=== PATIENT | female | born 1960 | race African-American/Black ===

== ENCOUNTER 2023-06-28 16:30 | Emergency (ER) | payer OTHER, MEDICAID, SELFPAY ==
[2023-06-28] VITALS (7 sets, daily range): BP systolic 120–169; BP diastolic 83–91
[2023-06-28 17:09] LABS: % Basophils 0.8 % (0-2); % Eosinophils 1.5 % (0-6); % Immature Granulocytes 0.5 % (0-0.5); % Lymphocytes 27.9 % (20.5-51.1); % Monocytes 5.9 % (1.7-9.3); % Neutrophils 63.4 % (42.2-75.2); Absolute Basophils 0.1 10^3/uL (0-0.2); Absolute Eosinophils 0.1 10^3/uL (0-0.7); Absolute Lymphocytes 2.2 10^3/uL (1.2-3.4); Absolute Monocytes 0.5 10^3/uL (0.1-0.6); Absolute Neutrophils 5.1 10^3/uL (1.4-6.5); Hematocrit 36.7 % (37.0-47.0); Hemoglobin 12.4 g/dL (12.0-16.0); Mean Corp Hgb Conc. 33.8 g/dL (33.0-37.0); Mean Corpuscular Hgb 31.2 pg (27.0-31.0); Mean Corpuscular Volume 92.4 fL (81.0-99.0); Mean Platelet Volume 11.5 fL (7.4-10.4); Nucleated Red Blood Cells % 0 %; Platelet Count 183 10^3/uL (130-400); Red Blood Cell Count 3.97 10^6/uL (4.20-5.40); Red Cell Dist. Width 13.2 % (11.5-14.5)
--- NOTE | 2023-06-28 17:16 | ED.GENMED ---
History of Present Illness
<Estefania Santiago PA-C - Last Filed: 06/29/23 19:50>
General
Chief Complaint: Chest Pain
Source: patient
Exam Limitations: none
Time Seen by Provider: 06/28/23 16:59
Nursing documentation reviewed up to this point in time: agreed with
Travel History
Have you had any contact with someone who has COVID-19?: No
Do you have any symptoms of coronavirus? Fever > 100 degrees, chills, cough, shortness of breath, sore throat, loss of taste or smell, muscle aches, or headache?: No
History of Present Illness
History of Present Illness:
Patient is a 62 year old female with history of CAD s/p 2 cardiac stents, MS presenting to the emergency department via EMS following acute onset chest pain at approximately 4PM . Patient states that she was at a [employer] meeting standing
up when she had a sudden onset substernal chest pain with radiation up into her left jaw. Patient states that chest pain lasted for about 30 minutes and has now mainly resolved. She does endorse a pain up into her left neck. Patient denies any
associated shortness of breath, back pain, nausea, vomiting, dizziness, or diaphoresis. She reports 2 prior 'heart attack 'which all had very different presenting symptoms. Patient denies any recent exertional chest pain. Patient does report eating
a spicy meal for lunch today.
Patient sees Dr. Riojas as her primary dipping machine operator through [facility]. Patient sees him every 6 months with most recent visit this past February. They are planning to replace one of her cardiac stents within the next year.
Phy Exam
<Estefania Santiago PA-C - Last Filed: 06/29/23 19:50>
Physical Exam
Physical Exam:
Vitals: Patient's vital signs are stable. Afebrile.
General: Patient is well appearing, no acute distress
Skin: Warm and dry, no rashes or lesions
Head: Normocephalic, atraumatic
Eyes: Sclera nonicteric. EOMs intact. No nystagmus.
Throat: Protecting airway
Neck: Normal ROM, no cervical spine tenderness, no meningismus. No tenderness over carotids. Tenderness on left upper trapezius at medial aspect.
Cardiac: Regular rate and rhythm, systolic ejection murmur noted. No anterior chest wall to palpation
Pulm: Normal respiratory effort, no wheezes, rales, rhonchi heard on exam.
Abdomen: No abdominal tenderness.
Extremities: No evidence of cyanosis or edema. Good distal pulses.
Neuro: AAOx3. CN II-XII intact. No focal neurologic deficits.
Psychiatric: Normal affect.
Scores
<Estefania Santiago PA-C - Last Filed: 06/29/23 19:50>
Heart Score for Chest Pain Patients
STEMI patient?: No
History: Moderately Suspicious
ECG: Normal
Age: >45 - <65 years
Risk Factors: >/= 3 Risk Factors or History of CAD
Troponin: </= Normal Limit
Heart Score for Chest Pain Patients: 4
Heart Score Risk: 20.3% MACE over next 6 weeks
<Deep Cordova MD - Last Filed: 06/29/23 02:43>
Heart Score for Chest Pain Patients
Heart Score for Chest Pain Patients: 4
Heart Score Risk: 20.3% MACE over next 6 weeks
Course
<Estefania Santiago PA-C - Last Filed: 06/29/23 19:50>
Orders/Labs/Results
Orders:
Orders
06/28/23 16:32
Electrocardiogram (*1) Urgent
Reason for Study: Chest Pain
EKG- Treatment ONCE
06/28/23 16:54
Complete Blood Count/With Diff Urgent
Comprehensive Metabolic Panel Urgent
Troponin I Urgent
06/28/23 17:09
CR Chest - 2 Views Urgent
Comment:
Reason For Exam: cp
06/28/23 18:02
EKG- Treatment ONCE
06/28/23 18:37
Acetaminophen [Tylenol] 650 mg PO NOW STA
06/28/23 19:55
Electrocardiogram (*1) Urgent
Reason for Study: Chest Pain
06/28/23 19:57
Troponin I Urgent
06/28/23 20:06
Electrocardiogram (*1) Urgent
Reason for Study: Chest Pain
EKG- Treatment ONCE
Abnormal Lab Results
06/28/23
16:54
RBC 3.97 L 10^6/uL
(4.20-5.40)
Hct 36.7 L %
(37.0-47.0)
MCH 31.2 H pg
(27.0-31.0)
MPV 11.5 H fL
(7.4-10.4)
Chloride 108 H mmol/L
(98-107)
BUN 22 H mg/dl
(7-17)
06/28/23 16:54
06/28/23 16:54
Vital Signs
Initial and Last Documented VS:
Initial Vital Signs
Temp Pulse Resp BP Pulse Ox
97.9 F 68 18 120/90 100
06/28/23 16:38 06/28/23 16:38 06/28/23 16:38 06/28/23 16:38 06/28/23 16:38
Last Documented Vital Signs
Temp Pulse Resp BP Pulse Ox
97.9 F 66 10 142/86 97
06/28/23 16:38 06/28/23 21:00 06/28/23 21:00 06/28/23 21:00 06/28/23 21:00
<Deep Cordova MD - Last Filed: 06/29/23 02:43>
Orders/Labs/Results
Orders:
Orders
06/28/23 16:32
Electrocardiogram (*1) Urgent
Reason for Study: Chest Pain
EKG- Treatment ONCE
06/28/23 16:54
Complete Blood Count/With Diff Urgent
Comprehensive Metabolic Panel Urgent
Troponin I Urgent
06/28/23 17:09
CR Chest - 2 Views Urgent
Comment:
Reason For Exam: cp
06/28/23 18:02
EKG- Treatment ONCE
06/28/23 18:37
Acetaminophen [Tylenol] 650 mg PO NOW STA
06/28/23 19:55
Electrocardiogram (*1) Urgent
Reason for Study: Chest Pain
06/28/23 19:57
Troponin I Urgent
06/28/23 20:06
Electrocardiogram (*1) Urgent
Reason for Study: Chest Pain
EKG- Treatment ONCE
Abnormal Lab Results
06/28/23
16:54
RBC 3.97 L 10^6/uL
(4.20-5.40)
Hct 36.7 L %
(37.0-47.0)
MCH 31.2 H pg
(27.0-31.0)
MPV 11.5 H fL
(7.4-10.4)
Chloride 108 H mmol/L
(98-107)
BUN 22 H mg/dl
(7-17)
06/28/23 16:54
06/28/23 16:54
Vital Signs
Initial and Last Documented VS:
Initial Vital Signs
Temp Pulse Resp BP Pulse Ox
97.9 F 68 18 120/90 100
06/28/23 16:38 06/28/23 16:38 06/28/23 16:38 06/28/23 16:38 06/28/23 16:38
Last Documented Vital Signs
Temp Pulse Resp BP Pulse Ox
97.9 F 66 10 142/86 97
06/28/23 16:38 06/28/23 21:00 06/28/23 21:00 06/28/23 21:00 06/28/23 21:00
<Estefania Santiago PA-C - Last Filed: 06/29/23 19:50>
MDM/Problems Addressed
Differential Diagnosis Includes:
Not limited to: muscle strain, GERD, ACS, pericarditis, myocarditis, pneumothorax, doubt PE or dissection
MDM/Problems Addressed:
62 year old female with history as documented presenting via EMS following acute onset chest pain earlier today. She did receive nitro en route. Chest pain has been resolved at this point but does report pain in her left side of her neck. There
was no associated shortness of breath, nausea, vomiting, diaphoresis, dizziness. Patient with significant cardiac history and 2 stent placements. Vital signs are stable. Exam as above. Heart rate regular. Lungs clear bilaterally. She does have
some tenderness palpation of her left upper trapezius which appears to be muscular in origin. No carotid tenderness. Will check labs, troponin, chest x-ray, EKG. will monitor very closely reassess. Tylenol for pain.
EKG obtained in triage shows normal sinus rhythm with no signs of ischemia.
Labs noted. No clinically significant abnormalities. Initial troponin is negative. Will repeat troponin in 3 hours to ensure not trending upwards.
Into reassess patient at bedside. She remains without any recurrence of chest pain. Vital signs remained stable.
Chest x-ray shows no signs of acute disease.
Repeat troponin negative. Repeat EKG shows no ischemic changes. Patient remains without chest pain. Given patient's significant cardiac history�I did recommended observation overnight with cardiology consult. Patient adamant that she would like
to go home. Shared decision making with patient. Given vitals are stable and she remains asymptomatic without any ischemic changes on EKG or elevation in troponin-I feel she is stable for discharge home with immediate cardiology follow-up. Return
precautions discussed at length. Patient will call dipping machine operator the morning for appointment this week. Patient is comfortable with plan. All questions answered.
Chronic conditions affecting care:
CAD s/p 2 stents
Acute Exacerbation and/or Progression of Chronic Illness:
N/A
<Estefania Santiago PA-C - Last Filed: 06/29/23 19:50>
*Radiology
Radiology exam reviewed: preliminary read by ED provider and radiology read reviewed
*Pulse Oximetry
Patient hypoxic: no
*EKG
Interpreted by ED Provider?: Yes
EKG Intrepretation Date: 06/28/23
Interpretation: normal
Comparison EKG: no comparison EKG present
Heart Rate: 64
Rate: normal
Rhythm: sinus
QRS Pattern: normal QRS
Ischemia: no ischemia
*Angle Bender Interpretation
Rate: normal
Interpretation: normal
Heart Rate: 62
Rhythm: sinus
*Critical Care Note
Total Time (30-74mins, 75-104mins- exclusive of procedures): Not Applicable
ED Attending Note
<Estefania Santiago PA-C - Last Filed: 06/29/23 19:50>
-
Portions of this chart may have been created with voice recognition software.� Occasional wrong word or��sound alike� substitutions may have occurred due to the inherent limitations of voice recognition software.
<Deep Cordova MD - Last Filed: 06/29/23 02:43>
ED Attending Note
Patient seen and examined by attending physician: Yes
ED Attending Note:
I have seen and evaluated the patient with a [id number] encounter. I have spoken to the advance practicer provider and involved in the medical history, the physical exam, medical decision making.
Evaluation and management service: agree unless noted differently below.
Results interpretation: agree unless noted differently below.
Focused HPI: 62-year-old female with history as documented presents to the emergency room for evaluation of chest pain. Patient was at a [employer] convention. She says that she had spicy chicken and hot peppers for lunch. She was sitting
for most of the afternoon. She says that when she went to stand up she began to feel pain in the center of her chest that was radiating to her right side and neck. She says she had a burning sensation in her neck. She says that this lasted for
about 30 minutes�EMS was called and when they arrived they gave her a dose of nitroglycerin and she says a few minutes later her symptoms seem to improve. She did not have any associated shortness of breath. She says she did not have palpitations.
No nausea, vomiting, diaphoresis. She has had multiple heart attacks in the past including most recently in 2013. She received her cardiology care at [facility]. Currently in the ER she is chest pain-free.
Physical exam: Awake alert not in distress. Vital signs all normal. She has a systolic murmur which is his known to patient. Lungs are clear to auscultation bilaterally. She has no notable edema and good pulses in all extremities. Her abdomen
is soft and nontender to deep palpation.
Medical Decision Makin-year-old female presents after an episode of chest pain that that resolved after dose of nitro. Currently chest pain-free. Plan to place an IV check labs including CBC and CMP, serial troponins. Check chest x-ray.
Will perform serial EKGs. Will monitor closely reassess after the above. By history although she does have high risk cardiac history I do wonder if GERD could have played a role as she describes a burning feeling in her throat and spicy meal for
lunch.
Labs reviewed: CBC and CMP unremarkable. Troponin negative times 1 repeat pending. Chest x-ray shows no acute disease. Continue to monitor.
Repeat troponin negative. Patient has remained chest pain-free throughout her ED observation. We did recommend admission for observation and cardiology assessment given her cardiac history but patient declined she says she feels well and would
rather go home and follow-up with her normal dipping machine operator. Using shared decision making she was discharged with strict return precautions and cardiology referral.
Discharge Plan
Departure
Patient Disposition: Home (Routine Discharge)
Date of Disposition: 06/28/23
Time of Disposition: 21:03
Patient with high blood pressure during this ER visit?: Yes
Condition: Good
Covid-19: Not Applicable
Discharge Problem:
Chest pain
Instructions: BLOOD PRESSURE, Chest Pain
Referrals:
KAILASH HUDSON [Other]
Activity Restrictions/Additional Instructions:
RETURN TO THE EMERGENCY DEPARTMENT WITH ANY CHEST PAIN, SHORTNESS OF BREATH, SEVERE BACK PAIN, CHEST PAIN WORSE WITH EXERTION OR ASSOCIATED WITH NAUSEA, SWEATING, LIGHTHEADEDNESS, WORSENING IN CURRENT SYMPTOMS, OR ANY OTHER CONCERNS
-You can apply ice to your left shoulder. You can take Tylenol as needed for discomfort. If symptoms worsen or you have any numbness or tingling in your left upper extremity you should return to the emergency
-As discussed�it is very important that you follow-up with your dipping machine operator in the next few days. Call them tomorrow morning. You should take it easy and limit physical activity/exertion until you are seen by cardiology.
-Monitor your symptoms closely and please return to the emergency department any worsening.
Interventions
Interventions:
*Risk Screen - Suicide Last Done: 06/28/23 16:38
*General Assessment Last Done: 06/28/23 16:38
*Neglect/Abuse Screening Last Done: 06/28/23 16:38
ED- Fall Risk Assessment Last Done: 06/28/23 17:00
*Nursing Disposition Last Done: 06/28/23 21:34
ED- Cardiac Assessment Last Done: 06/28/23 17:00
Discharge Date and Time
Discharge Date/Time: 06/28/23 21:35
Print Language: PASHTO
[2023-06-28 17:24] LABS: ALT (SGPT) 27 U/L (0-35); AST (SGOT) 29 U/L (14-36); Albumin 3.9 g/dl (3.5-5.0); Alkaline Phosphatase 93 U/L (38-126); Blood Urea Nitrogen 22 mg/dl (7-17); Calcium 8.9 mg/dl (8.4-10.2); Carbon Dioxide 25 mmol/L (22-30); Chloride 108 mmol/L (98-107); Estimated Creatinine Clearance 59 ml/min; Glucose 83 mg/dl (70-99); Potassium 4.2 mmol/L (3.5-5.1); Sodium 141 mmol/L (135-145); Total Bilirubin 0.2 mg/dl (0.2-1.3); Total Protein 6.4 g/dl (6.3-8.2); eGFR > 60.00
[2023-06-28 17:38] LABS: Troponin I 0.012 ng/ml
[2023-06-28] MEDS: TYLENOL 650 MG PO (18:47)
[2023-06-28 20:31] LABS: Troponin I 0.014 ng/ml
== END 2023-06-28 21:35 | disposition home or self-care (01) ==
LOC: EMR 16:30
PROVIDERS: Emergency Medicine; Physician Assistant; EMERGENCY PHYSICIAN Emergency Medicine
DX: R07.89 Other chest pain (principal); I25.10 Atherosclerotic heart disease of native coronary artery without angina pectoris; I25.2 Old myocardial infarction; Z95.5 Presence of coronary angioplasty implant and graft
CPT/HCPCS: 99283; 71046; 80053; 84484; 85025; 93005